=== PATIENT | female | born 1965 | race Caucasian/White ===

== ENCOUNTER 2016-11-04 13:49 | Emergency (ER) | payer OTHER ==
[~2016-11-04] VITALS: Ht 172.7 cm; Wt 73.7 kg
[2016-11-04 13:55] VITALS: TEMP 36.6; Ht 172.7 cm; Wt 73.7 kg
[2016-11-04] MEDS ORDERED: ONDANSETRON INJ 2 MG/ML 2 ML VIAL IV STA (14:12)
[2016-11-04] MEDS ORDERED: MoRPHine SULFATE 10 MG/ML CARP/VIAL IV STA (14:12)
[2016-11-04] MEDS ORDERED: SODIUM CHLORIDE 0.9% 1000ML 1,000 ML IV STA (14:12)
[2016-11-04 14:19] LABS: BASO % 0.5 %; BASO ABS # 0.04 K/uL (0-0.2); COMPLETE YES; EOS % 1.5 %; IG% 0.2 %; LYMPH % 40.1 %; LYMPH ABS # 3.38 K/uL (1.2-3.4); MEAN CELL VOLUME 86.4 fL (80-100); MEAN CORPUSCULAR HEMOGLOBIN 30.5 pg (25-34); MEAN CORPUSCULAR HGB CONC 35.2 g/dl (32-36); MEAN PLATELET VOLUME 10.6 fL (7.4-10.4); MONO % 4.9 %; NEUT % 52.8 %; PLATELET COUNT 236 K/uL (130-400); RED BLOOD COUNT 4.86 M/uL (4.2-5.4); WHITE BLOOD COUNT 8.43 K/uL (4.8-10.8)
[2016-11-04 14:31] LABS: ALT/SGPT 17 U/L (12-78); BLOOD UREA NITROGEN 12 mg/dl (7-18); BUN/CREATININE RATIO 13.8 (10-20); CALCIUM 9.2 mg/dl (8.5-10.1); CARBON DIOXIDE 30 mmol/L (21-32); CHLORIDE 108 mmol/L (98-107); CREATININE 0.87 mg/dl (0.60-1.20); GLUCOSE 88 mg/dl (70-99); POTASSIUM 3.8 mmol/L (3.5-5.1); SODIUM 143 mmol/L (136-145)
[2016-11-04 14:36] LABS: ALB/GLOB RATIO 1.2 (0.9-2); ALKALINE PHOSPHATASE 64 U/L (45-117); AST/SGOT 13 U/L (15-37)
[2016-11-04 14:46] LABS: URINE APPEARANCE CLEAR (CLEAR); URINE BILIRUBIN NEG (NEG); URINE COLOR YELLOW; URINE EPITHELIAL CELL AUTO >30 /lpf (0-5); URINE NITRITE NEG (NEG); UROBILINOGEN NEG (NEG); ZZUR CULT IF INDIC CLEAN CATCH NO
[2016-11-04 14:48] LABS: MANUAL MICROSCOPIC REQUIRED? NO; REVIEW REQ? NO
--- NOTE | 2016-11-04 15:21 | DIAGNOSTIC IMAGING REPORT ---
ABDOMINAL ULTRASOUND, RIGHT UPPER QUADRANT HISTORY: Right upper quadrant pain and nausea. COMPARISON: None. FINDINGS: Liver is sonographically normal. There is no biliary ductal dilatation. No gallstones are identified. A few small echogenic nonmobile structures enhancement to the gallbladder wall suggests small polyps which measure up to 4 mm. There is no gallbladder wall thickening. The pancreatic body is normal. The head and tail are partially obscured. There is no right hydronephrosis. IMPRESSION: 1. No gallstones or biliary ductal dilatation. 2. Several suspected small gallbladder polyps measuring up to 4 mm. 3. Partially obscured pancreas. Electronically signed by: Ruben Winter M.D. 11/04/2016 3:20 PM Dictated Date/Time: 11/04/2016 3:19 PM
[2016-11-04] MEDS ORDERED: OPTIRAY 320 IV PRN (15:45)
--- NOTE | 2016-11-04 16:18 | DIAGNOSTIC IMAGING REPORT ---
CT OF THE ABDOMEN AND PELVIS WITH CONTRAST CLINICAL HISTORY: Right upper quadrant/epigastric pain. Nausea. COMPARISON STUDY: Right upper quadrant ultrasound November 04, 2016. TECHNIQUE: Following IV administration of 114 mL of Optiray-320, axial images of the abdomen and pelvis were obtained from the lung bases to the proximal femurs. Images were reviewed in the axial, sagittal, and coronal planes. IV contrast was administered without complication. CT DOSE: 337.83 mGy.cm FINDINGS: No pneumatosis, free air or portal venous gas is present. The liver, spleen, adrenal glands, kidneys and pancreas are normal with the exception of a possible tiny fat-containing lesion arising from the upper pole of the right kidney. This is benign. There is no hydronephrosis. There is no evidence for a bowel obstruction. The appendix is normal. There is no ascites. Pelvic calcifications likely reflect phleboliths. No lymphadenopathy is present. No suspicious skeletal lesions are identified. Mild loss of height of the superior endplate of L5 is chronic. IMPRESSION: No acute process within the abdomen or pelvis. Normal appendix. Electronically signed by: Ruben Winter M.D. 11/04/2016 4:16 PM Dictated Date/Time: 11/04/2016 4:08 PM
[2016-11-04] MEDS ORDERED: HYDR-5688 PO (16:41)
[2016-11-04] MEDS ORDERED: ONDA4TAB10 SL (16:41)
--- NOTE | 2016-11-04 16:44 | EMERGENCY ROOM VISIT NOTE ---
History First contact with patient: 14:04 Chief Complaint: ABDOMINAL PAIN Stated Complaint: ABD. PAIN Nursing Triage Summary: Patient presents from [facility] with a c/c of right sided abdominal pain X 2 weeks, particularly more severe after eating. Patient does have nausea, negative vomiting, occassional diarrhea. History of Present Illness The patient is a 51 year old female who presents to the Emergency Room with complaints of right upper quadrant and epigastric abdominal pain for the past 2 weeks. The patient states that she has had progressively worsening upper abdominal pain for the past 2 weeks. She states the pain seems to worsen after eating. She reports associated nausea and a feeling of fullness after eating. The patient denies any vomiting. She rates her current discomfort 8/10. She has not been taking any medication for pain. She was seen at her primary care provider's office and they sent her here for further evaluation. The patient does report she had some blood in her stools a few months ago, but denies any recent changes in bowel movements or blood in her stools. She denies any fevers /chills, chest pain or urinary symptoms. She reports a history of hysterectomy but no other abdominal surgeries. Review of Systems A complete 10-point Review of Systems was discussed with the patient, with pertinent positives and negatives listed in the History of Present Illness. All remaining Review of Systems questions can be considered negative unless otherwise specified. Social History Smoking Status: Current Every Day Smoker Marital Status: Housing Status: lives with family Current/Historical Medications Scheduled Ondasetron Odt (Zofran Odt), 4 MG SL Q6H Scheduled PRN Hydrocodone/Acetaminophen 5MG/325MG ([place] 5MG/325MG), 1 TABLET PO Q4H PRN for Pain Allergies Coded Allergies: No Known Allergies (Unverified , none, 11/04/16) Physical Exam Vital Signs Date Time Temp Pulse Resp B/P Pulse Ox O2 Delivery O2 Flow Rate FiO2 11/04/16 16:53 70 18 113/79 95 11/04/16 15:21 61 16 118/69 95 Room Air 11/04/16 13:55 36.6 78 18 119/80 97 Room Air Physical Exam VITALS: Vitals are noted on the nurse's note and reviewed by myself. Vital signs stable. GENERAL: This is a 51-year-old female, in no acute distress, nondiaphoretic, well-developed well-nourished. SKIN: Capillary reflex less than 2 seconds. HEENT: Normocephalic. PERRLA. EOMI. Nares patent. Mucous membranes moist. Neck is supple without nuchal rigidity. HEART: Regular rate and rhythm without murmurs gallops or rubs. LUNGS: Clear to auscultation bilaterally without wheezes, rales or rhonchi. No retractions or accessory muscle use. ABDOMEN: Positive bowel sounds x 4. Soft, moderate tenderness over the epigastric region and right upper quadrant. Negative Mckeon sign. No guarding or rebound tenderness. NEURO: Patient was alert and oriented to person place and time. Medical Decision & Procedures ER Provider Diagnostic Interpretation: ABDOMINAL ULTRASOUND, RIGHT UPPER QUADRANT FINDINGS: Liver is sonographically normal. There is no biliary ductal dilatation. No gallstones are identified. A few small echogenic nonmobile structures enhancement to the gallbladder wall suggests small polyps which measure up to 4 mm. There is no gallbladder wall thickening. The pancreatic body is normal. The head and tail are partially obscured. There is no right hydronephrosis. IMPRESSION: 1. No gallstones or biliary ductal dilatation. 2. Several suspected small gallbladder polyps measuring up to 4 mm. 3. Partially obscured pancreas. CT OF THE ABDOMEN AND PELVIS WITH CONTRAST FINDINGS: No pneumatosis, free air or portal venous gas is present. The liver, spleen, adrenal glands, kidneys and pancreas are normal with the exception of a possible tiny fat-containing lesion arising from the upper pole of the right kidney. This is benign. There is no hydronephrosis. There is no evidence for a bowel obstruction. The appendix is normal. There is no ascites. Pelvic calcifications likely reflect phleboliths. No lymphadenopathy is present. No suspicious skeletal lesions are identified. Mild loss of height of the superior endplate of L5 is chronic. IMPRESSION: No acute process within the abdomen or pelvis. Normal appendix. Laboratory Results 11/04/16 14:05 Red Blood Count 4.86, Mean Corpuscular Volume 86.4, Mean Corpuscular Hemoglobin 30.5, Mean Corpuscular Hemoglobin Concent 35.2, Mean Platelet Volume 10.6, Neutrophils (%) (Auto) 52.8, Lymphocytes (%) (Auto) 40.1, Monocytes (%) (Auto) 4.9, Eosinophils (%) (Auto) 1.5, Basophils (%) (Auto) 0.5, Neutrophils # (Auto) 4.45, Lymphocytes # (Auto) 3.38, Monocytes # (Auto) 0.41, Eosinophils # (Auto) 0.13, Basophils # (Auto) 0.04 11/04/16 14:05 Test 11/04/16 00:00 11/04/16 14:05 Urine Color YELLOW Urine Appearance CLEAR (CLEAR) Urine pH 7.0 (4.5-7.5) Urine Specific [place] 1.010 (1.000-1.030) Urine Protein NEG (NEG) Urine Glucose (UA) NEG (NEG) Urine Ketones NEG (NEG) Urine Occult Blood 1+ (NEG) Urine Nitrite NEG (NEG) Urine Bilirubin NEG (NEG) Urine Urobilinogen NEG (NEG) Urine Leukocyte Esterase TRACE (NEG) Urine WBC (Auto) 1-5 /hpf (0-5) Urine RBC (Auto) 5-10 /hpf (0-4) Urine Hyaline Casts (Auto) 1-5 /lpf (0-5) Urine Epithelial Cells (Auto) >30 /lpf (0-5) Urine Bacteria (Auto) NEG (NEG) White Blood Count 8.43 K/uL (4.8-10.8) Red Blood Count 4.86 M/uL (4.2-5.4) Hemoglobin 14.8 g/dL (12.0-16.0) Hematocrit 42.0 % (37-47) Mean Corpuscular Volume 86.4 fL (80-100) Mean Corpuscular Hemoglobin 30.5 pg (25-34) Mean Corpuscular Hemoglobin Concent 35.2 g/dl (32-36) Platelet Count 236 K/uL (130-400) Mean Platelet Volume 10.6 fL (7.4-10.4) Neutrophils (%) (Auto) 52.8 % Lymphocytes (%) (Auto) 40.1 % Monocytes (%) (Auto) 4.9 % Eosinophils (%) (Auto) 1.5 % Basophils (%) (Auto) 0.5 % Neutrophils # (Auto) 4.45 K/uL (1.4-6.5) Lymphocytes # (Auto) 3.38 K/uL (1.2-3.4) Monocytes # (Auto) 0.41 K/uL (0.11-0.59) Eosinophils # (Auto) 0.13 K/uL (0-0.5) Basophils # (Auto) 0.04 K/uL (0-0.2) RDW Standard Deviation 42.3 fL (36.4-46.3) RDW Coefficient of Variation 13.3 % (11.5-14.5) Immature Granulocyte % (Auto) 0.2 % Immature Granulocyte # (Auto) 0.02 K/uL (0.00-0.02) Anion Gap 5.0 mmol/L (3-11) Est Creatinine Clear Calc Drug Dose 78.9 ml/min Estimated GFR () 90.7 Estimated GFR (Non- 78.2 BUN/Creatinine Ratio 13.8 (10-20) Calcium Level 9.2 mg/dl (8.5-10.1) Total Bilirubin 0.8 mg/dl (0.2-1) Aspartate Amino Transf (AST/SGOT) 13 U/L (15-37) Alanine Aminotransferase (ALT/SGPT) 17 U/L (12-78) Alkaline Phosphatase 64 U/L (45-117) Troponin I < 0.015 ng/ml (0-0.045) Total Protein 7.6 gm/dl (6.4-8.2) Albumin 4.2 gm/dl (3.4-5.0) Globulin 3.4 gm/dl (2.5-4.0) Albumin/Globulin Ratio 1.2 (0.9-2) Lipase 124 U/L (73-393) Medications Administered Medications (Trade) Dose Ordered Sig/Sil Route Start Time Stop Time Status Last Admin Dose Admin Sodium Chloride (Nss 1000ml) 1,000 ml @ 999 mls/hr Q1H1M STAT IV 11/04/16 14:12 11/04/16 15:12 DC 11/04/16 14:31 999 MLS/HR Morphine Sulfate (MoRPHine SULFATE INJ) 6 mg NOW STAT IV 11/04/16 14:12 11/04/16 14:15 DC 11/04/16 14:31 6 MG Ondansetron HCl (Zofran Inj) 4 mg NOW STAT IV 11/04/16 14:12 11/04/16 14:15 DC 11/04/16 14:30 4 MG Medical Decision Differential diagnosis includes cholecystitis, pancreatitis, hepatitis, gastroenteritis, colitis, bowel obstruction, malignancy, appendicitis, among others. The patient was evaluated as above. Labs were drawn and IV access was obtained. Imaging studies were performed and read by radiology as above. The patient was medicated with 1 L normal saline solution, 6 mg morphine IV, and 4 mg Zofran IV. The patient was reassessed multiple times during their stay in the emergency department and remained in stable condition. The patient is a 51-year-old female who presents today complaining of epigastric and right upper quadrant pain. Labs revealed no leukocytosis, anemia or concerning electrolyte abnormalities. Kidney liver functions were within normal limits. Urinalysis was not suggestive of infection. Right upper quadrant ultrasound was initially performed and showed no acute findings within the right upper quadrant. Note was made of gallbladder polyps which I do not feel her causing the patient discomfort. At this time, a CT scan was performed due to the patient's discomfort. This was read by radiology and also showed no acute findings within the abdomen. Patient's pain was controlled with IV pain medication and antiemetics. She will be discharged home with a prescription for Graymont and Zofran. She was instructed to start Prilosec and follow-up with her primary care provider within 48 hours. Based on the patient's presentation, lab results, and imaging studies, I feel the patient is stable for outpatient treatment. The patient's case was reviewed with Dr. Smith, ED attending physician, who agreed with my assessment and treatment plan. Discharge instructions were reviewed with the patient. The patient verbalized understanding of my assessment and treatment plan and was discharged home in good condition. [place] Drug Monitoring Program Search Results: patient reviewed within database, no issues identified Impression Primary Impression: RUQ abdominal pain Departure Information Dispostion Home / Self-Care Condition GOOD Prescriptions Ondasetron Odt (ZOFRAN ODT) 4 Mg Tab 4 MG SL Q6H for Nausea, #15 TAB Prov: Lin Singleton PA-C 11/04/16 Hydrocodone/Acetaminophen 5MG/325MG ([place] 5MG/325MG) Tab 1 TABLET PO Q4H Y for Pain, #15 TAB For Initial Treatment Prov: Lin Singleton PA-C 11/04/16 Referrals Amaya Jamison M.D. (PCP) Patient Instructions My [facility] Additional Instructions You have been treated in the Emergency Department your Abdominal Pain. Laboratory results and imaging studies have ruled out any emergent causes for your abdominal pain which would warrant admission or surgery. You have been prescribed Graymont to be used for pain control. This is a narcotic medication. You cannot drive or consume alcohol while on this medicine. This medicine should only be used for pain that cannot be controlled with over-the- counter pain medicines. You have been prescribed Zofran to be used for any nausea or vomiting. Take as prescribed. Prilosec, 40 mg daily until follow-up with your primary care provider. Drink plenty of water and stay well hydrated. As with any trip to the Emergency Department, you should follow-up with your Primary Care Provider from today's visit. Call and schedule a follow-up within 2-3 days. Return to the emergency department if your symptoms persist despite treatment plan outlined above or if the following symptoms occur: increased abdominal pain , fevers, chills, worsening nausea/vomiting, blood in your stool or urine.
[2016-11-04 16:53] VITALS: BP 113/79; PULSE 70; O2SAT 95
== END 2016-11-04 16:54 | disposition home or self-care (01) ==
LOC: C.EDB 13:50 → C.EDC 16:54
DX: R10.11 Right upper quadrant pain (principal); R10.13 Epigastric pain; R11.0 Nausea; F17.200 Nicotine dependence, unspecified, uncomplicated; Z90.710 Acquired absence of both cervix and uterus

== ENCOUNTER 2017-09-22 14:34 | Emergency (ER) | payer OTHER ==
[~2017-09-22] VITALS: Ht 172.7 cm; Wt 76.5 kg
[2017-09-22 14:49] VITALS: TEMP 36.8; Ht 172.7 cm; Wt 76.5 kg
[2017-09-22] MEDS ORDERED: OXYCODONE/ACETAMINOPHEN 5-325 TAB PO ONE (15:15)
--- NOTE | 2017-09-22 15:25 | EMERGENCY ROOM VISIT NOTE ---
History Report prepared by Kyle: Fabi Holbrook Under the Supervision of: Dr. Jabier Wall M.D. 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 She describes the pain as a burning and feels numbness. 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 The patient states she was at her house this morning and was feeling lightheaded and dizzy so she went to sit down in a chair. However, the chair had wheels on it and it rolled out from under her and she tried to catch herself on her wrist but feel on her bottom. She denies any LOC, chest pain, nausea, cough, vomiting , and diarrhea. 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 A total of ten systems were reviewed and were otherwise negative. Past Medical & Surgical Surgical Problems: (1) Status post complete hysterectomy Family History Cancer FHx: diabetes mellitus Gallbladder disease Heart disease Lung disease Social History Smoking Status: Current Every Day Smoker Smokeless Tobacco Use: Yes Marital Status: Housing Status: lives with family Current/Historical Medications Scheduled Naproxen (Aleve), 440 MG PO PRN UD Scheduled PRN Acetaminophen (Tylenol), 1,000 MG PO Q6 PRN for Pain Allergies Coded Allergies: No Known Allergies (Unverified , none, 11/04/16) Physical Exam Vital Signs Date Time Temp Pulse Resp B/P (MAP) Pulse Ox O2 Delivery O2 Flow Rate FiO2 09/22/17 17:45 73 18 129/76 98 09/22/17 16:54 71 16 131/84 97 Room Air 09/22/17 14:49 36.8 83 20 124/84 97 Room Air Physical Exam GENERAL: Awake, alert, uncomfortable-appearing, in no distress HENT: Normocephalic, atraumatic. Oropharynx unremarkable. EYES: Normal conjunctiva. Sclera non-icteric. NECK: Supple. No nuchal rigidity. FROM. No JVD. RESPIRATORY: Clear to auscultation. CARDIAC: Regular rate, normal rhythm. Extremities warm and well perfused. Pulses equal. ABDOMEN: Soft, non-distended. No tenderness to palpation. No rebound or guarding. No masses. RECTAL: Deferred. MUSCULOSKELETAL: Chest examination reveals no tenderness. Tenderness throughout the C and upper T spine, no step offs, tenderness to the right paraspinal muscles of the spine extending to the trapezius, tenderness to the right upper shoulder, tenderness to the right radial aspect of the wrist with snuff box tenderness LOWER EXTREMITIES: Calves are equal size bilaterally and non-tender. No edema. No discoloration. NEURO: Normal sensorium. No sensory or motor deficits noted. SKIN: No rash or jaundice noted. Medical Decision & Procedures ER Provider Diagnostic Interpretation: Radiology results as stated below per my review and radiologist interpretation: R WRIST MIN 3 VIEWS ROUTINE CLINICAL HISTORY: Pain following fall. COMPARISON: None FINDINGS: Alignment of the right wrist is anatomic. No acute fracture is identified. There is mild arthritis within several articulations of the right wrist. IMPRESSION: No acute fracture or dislocation of the right wrist. Electronically signed by: Ruben Winter M.D. 09/22/2017 3:51 PM Dictated Date/Time: 09/22/2017 3:50 PM R SHOULDER MIN 2 VIEWS ROUTINE CLINICAL HISTORY: Pain following fall. COMPARISON: None FINDINGS: Alignment of the right shoulder is anatomic. There is no acute fracture. There is mild osteoarthritis of the right acromioclavicular joint. IMPRESSION: No acute fracture or dislocation of the right shoulder. Electronically signed by: Ruben Winter M.D. 09/22/2017 3:42 PM Dictated Date/Time: 09/22/2017 3:41 PM R HAND MIN 3 VIEWS ROUTINE CLINICAL HISTORY: Right hand pain following fall. COMPARISON: None FINDINGS: Alignment of the right hand is anatomic. There is no acute fracture. There is mild osteoarthritis within several articulations of the right hand. IMPRESSION: No acute fracture or dislocation within the right hand. Electronically signed by: Ruben Winter M.D. 09/22/2017 3:52 PM Dictated Date/Time: 09/22/2017 3:[address] OF THE CERVICAL SPINE WITHOUT CONTRAST CLINICAL HISTORY: Neck pain following fall. COMPARISON STUDY: No previous studies for comparison. TECHNIQUE: Helical axial images of the cervical spine were obtained without IV contrast. Sagittal and coronal reconstructions were viewed. A dose lowering technique was utilized adhering to the principles of ALARA. FINDINGS: There is reversal of the normal cervical lordosis. Craniocervical junction is intact. There is no acute cervical spine fracture. Central canal is suboptimally assessed by CT. There is mild to moderate multilevel degenerative disc disease. There is mild multilevel facet arthrosis. Mild bullous emphysema is noted within visualized portions of the lung apices. IMPRESSION: No acute cervical spine fracture or subluxation. Electronically signed by: Ruben Winter M.D. 09/22/2017 4:27 PM Dictated Date/Time: 09/22/2017 4:[address] OF THE CHEST WITHOUT IV CONTRAST CLINICAL HISTORY: Right chest wall pain following fall. COMPARISON STUDY: No previous studies for comparison. TECHNIQUE: Axial images of the chest were obtained without IV contrast. Images were reviewed in the axial, sagittal, and coronal planes. IV contrast was not administered for this examination. A dose lowering technique was utilized adhering to the principles of ALARA. FINDINGS: No mediastinal hematoma is identified. Thoracic aorta is suboptimally assessed on this unenhanced exam but there is no evidence of traumatic injury to the thoracic aorta on the study. The size of the heart is normal. There is no pericardial effusion. No enlarged thoracic lymph nodes are present. There is mild paraseptal emphysema within the lung apices. There is no pneumothorax or pleural effusion. Groundglass opacity suggest atelectasis. No acute rib or thoracic spine fracture is present. Mild loss of height of the superior endplate of T9 is chronic. A cyst within the upper pole the right kidney is noted. IMPRESSION: 1. No acute traumatic findings within the chest. 2. Mild paraseptal emphysema. Electronically signed by: Ruben Winter M.D. 09/22/2017 4:34 PM Dictated Date/Time: 09/22/2017 4:28 PM THORACIC SPINE WITHOUT CLINICAL HISTORY: Pain following fall. COMPARISON STUDY: No previous studies for comparison. FINDINGS: Alignment of the thoracic spine is anatomic. Mild loss of height of the superior endplate of T9 with an associated Schmorl's node is unchanged since abdominal CT of November 04, 2016. This is chronic. There is no acute thoracic spine fracture. Disc spaces are preserved. There is mild endplate osteophytosis. The chest CT will be reported separately. IMPRESSION: 1. No acute thoracic spine fracture or subluxation. 2. Mild loss of height of the superior endplate of T9 with associated Schmorl's node which is unchanged since CT of November 04, 2016. This is chronic. Electronically signed by: Ruben Winter M.D. 09/22/2017 4:36 PM Dictated Date/Time: 09/22/2017 4:34 PM Laboratory Results Test 09/22/17 15:26 Influenza Type A Antigen Neg for Influ A (NEG) Influenza Type B Antigen Neg for Influ B (NEG) Laboratory results reviewed by me Medications Administered Medications (Trade) Dose Ordered Sig/Sil Route Start Time Stop Time Status Last Admin Dose Admin Oxycodone/ Acetaminophen (Percocet 5-325mg Tab) 1 tab NOW ONCE PO 09/22/17 15:15 09/22/17 15:16 DC 09/22/17 15:30 1 TAB ED Course 1455: The patient was evaluated in room A12. A complete history and physical exam was performed. 1645: I reevaluated the patient. Discussed results and discharge instructions: She verbalized understanding and agreement. The patient is ready for discharge. Medical Decision I reviewed the patient's past medical history, medications, and the nursing notes as described above. Differential diagnosis: Etiologies such as fracture, dislocation, intra-abdominal, pneumothorax, intrathoracic , intracranial, neurologic, as well as other traumatic pathologies were entertained. The patient is a 51-year-old woman who presents emergency department after having a mechanical fall when her recliner which is on wheels slipped out from underneath her and she planted her right hand to brace her fall subsequently having significant right wrist, shoulder, neck and back pain per hpi. Ill the patient is no acute distress, afebrile stable vital signs. She has tenderness to the radial aspect of the right wrist with positive snuffbox tenderness. Tenderness to the anterior aspect of the right shoulder with pain with passive and active range of motion. Tenderness throughout the cervical and upper T- spine with no step-offs. CT of cervical and thoracic spine and chest negative. Plan films of shoulder wrist and hand negative for fx. Given patient's increased pain in shoulder with active ROM likely RC injury. +snuff box ttp persists thus will splint and have patient f/u with ortho. Findings and plan for follow-up reviewed with patient. Patient agreeable and d/c'd per discharge instructions. Medication Reconcilliation Current Medication List: was personally reviewed by me Blood Pressure Screening Patient's blood pressure: Normal blood pressure Blood pressure disposition: Did not require urgent referral Impression Primary Impression: Right wrist sprain Additional Impressions: Rotator cuff injury Neck muscle strain Scribe Attestation The scribe's documentation has been prepared under my direction and personally reviewed by me in its entirety. I confirm that the note above accurately reflects all work, treatment, procedures, and medical decision making performed by me. Departure Information Dispostion Home / Self-Care Referrals Amaya Jamison M.D. (PCP) Eduardo Hays, DO Patient Instructions ED Sling, ED Sprain Strain Neck, ED Sprain Wrist, [facility], Rotator Cuff Injury Additional Instructions Please follow up with orthopedics, Dr. Hays, in the next week for re- evaluation of your wrist and shoulder and possible repeat xray of your wrist. You likely have a rotator cuff injury and a wrist sprain although scaphoid fracture is still possible given your tenderness at the base of your thumb. Otherwise, your exam, Xrays, and CT scan of your neck, chest, cervical and thoracic spine did not show signs of an emergent condition at this time. Continue your Acetaminophen or Aleve for pain as needed. Splint and sling as directed. Drink plenty of fluids to ensure hydration. Return to the emergency department for worsening symptoms as described in the accompanying instructions. Problem Qualifiers
--- NOTE | 2017-09-22 15:44 | DIAGNOSTIC IMAGING REPORT ---
R SHOULDER MIN 2 VIEWS ROUTINE CLINICAL HISTORY: Pain following fall. COMPARISON: None FINDINGS: Alignment of the right shoulder is anatomic. There is no acute fracture. There is mild osteoarthritis of the right acromioclavicular joint. IMPRESSION: No acute fracture or dislocation of the right shoulder. Electronically signed by: Ruben Winter M.D. 09/22/2017 3:42 PM Dictated Date/Time: 09/22/2017 3:41 PM
[2017-09-22] MEDS ORDERED: ACET-1256 PO (15:49)
[2017-09-22] MEDS ORDERED: NAPR1TAB9 PO (15:49)
--- NOTE | 2017-09-22 15:52 | DIAGNOSTIC IMAGING REPORT ---
R WRIST MIN 3 VIEWS ROUTINE CLINICAL HISTORY: Pain following fall. COMPARISON: None FINDINGS: Alignment of the right wrist is anatomic. No acute fracture is identified. There is mild arthritis within several articulations of the right wrist. IMPRESSION: No acute fracture or dislocation of the right wrist. Electronically signed by: Ruben Winter M.D. 09/22/2017 3:51 PM Dictated Date/Time: 09/22/2017 3:50 PM
--- NOTE | 2017-09-22 15:53 | DIAGNOSTIC IMAGING REPORT ---
R HAND MIN 3 VIEWS ROUTINE CLINICAL HISTORY: Right hand pain following fall. COMPARISON: None FINDINGS: Alignment of the right hand is anatomic. There is no acute fracture. There is mild osteoarthritis within several articulations of the right hand. IMPRESSION: No acute fracture or dislocation within the right hand. Electronically signed by: Ruben Winter M.D. 09/22/2017 3:52 PM Dictated Date/Time: 09/22/2017 3:51 PM
[2017-09-22 16:28] LABS: INFLUENZA B ANTIGEN Neg for Influ B (NEG)
--- NOTE | 2017-09-22 16:28 | DIAGNOSTIC IMAGING REPORT ---
CT OF THE CERVICAL SPINE WITHOUT CONTRAST CLINICAL HISTORY: Neck pain following fall. COMPARISON STUDY: No previous studies for comparison. TECHNIQUE: Helical axial images of the cervical spine were obtained without IV contrast. Sagittal and coronal reconstructions were viewed. A dose lowering technique was utilized adhering to the principles of ALARA. FINDINGS: There is reversal of the normal cervical lordosis. Craniocervical junction is intact. There is no acute cervical spine fracture. Central canal is suboptimally assessed by CT. There is mild to moderate multilevel degenerative disc disease. There is mild multilevel facet arthrosis. Mild bullous emphysema is noted within visualized portions of the lung apices. IMPRESSION: No acute cervical spine fracture or subluxation. Electronically signed by: Ruben Winter M.D. 09/22/2017 4:27 PM Dictated Date/Time: 09/22/2017 4:23 PM
--- NOTE | 2017-09-22 16:36 | DIAGNOSTIC IMAGING REPORT ---
CT OF THE CHEST WITHOUT IV CONTRAST CLINICAL HISTORY: Right chest wall pain following fall. COMPARISON STUDY: No previous studies for comparison. TECHNIQUE: Axial images of the chest were obtained without IV contrast. Images were reviewed in the axial, sagittal, and coronal planes. IV contrast was not administered for this examination. A dose lowering technique was utilized adhering to the principles of ALARA. FINDINGS: No mediastinal hematoma is identified. Thoracic aorta is suboptimally assessed on this unenhanced exam but there is no evidence of traumatic injury to the thoracic aorta on the study. The size of the heart is normal. There is no pericardial effusion. No enlarged thoracic lymph nodes are present. There is mild paraseptal emphysema within the lung apices. There is no pneumothorax or pleural effusion. Groundglass opacity suggest atelectasis. No acute rib or thoracic spine fracture is present. Mild loss of height of the superior endplate of T9 is chronic. A cyst within the upper pole the right kidney is noted. IMPRESSION: 1. No acute traumatic findings within the chest. 2. Mild paraseptal emphysema. Electronically signed by: Ruben Winter M.D. 09/22/2017 4:34 PM Dictated Date/Time: 09/22/2017 4:28 PM
--- NOTE | 2017-09-22 16:37 | DIAGNOSTIC IMAGING REPORT ---
THORACIC SPINE WITHOUT CLINICAL HISTORY: Pain following fall. COMPARISON STUDY: No previous studies for comparison. FINDINGS: Alignment of the thoracic spine is anatomic. Mild loss of height of the superior endplate of T9 with an associated Schmorl's node is unchanged since abdominal CT of November 04, 2016. This is chronic. There is no acute thoracic spine fracture. Disc spaces are preserved. There is mild endplate osteophytosis. The chest CT will be reported separately. IMPRESSION: 1. No acute thoracic spine fracture or subluxation. 2. Mild loss of height of the superior endplate of T9 with associated Schmorl's node which is unchanged since CT of November 04, 2016. This is chronic. Electronically signed by: Ruben Winter M.D. 09/22/2017 4:36 PM Dictated Date/Time: 09/22/2017 4:34 PM
[2017-09-22 17:45] VITALS: BP 129/76; PULSE 73; O2SAT 98
== END 2017-09-22 17:43 | disposition home or self-care (01) ==
LOC: C.EDB 14:37 → C.EDA 17:43
DX: S63.501A Unspecified sprain of right wrist, initial encounter (principal); S46.001A Unspecified injury of muscle(s) and tendon(s) of the rotator cuff of right shoulder, initial encounter; S16.1XXA Strain of muscle, fascia and tendon at neck level, initial encounter; W18.39XA Other fall on same level, initial encounter; Y93.89 Activity, other specified; Y92.009 Unspecified place in unspecified non-institutional (private) residence as the place of occurrence of the external cause; F17.200 Nicotine dependence, unspecified, uncomplicated; Z80.9 Family history of malignant neoplasm, unspecified; Z83.3 Family history of diabetes mellitus; Z83.79 Family history of other diseases of the digestive system; Z82.49 Family history of ischemic heart disease and other diseases of the circulatory system

== ENCOUNTER 2019-01-09 06:33 | Observation (INO) ==
--- NOTE | 2018-12-12 09:22 | Anesthesiology Consultation ---
Date of Service December 12, 2018 Assessment & Plan (1) Encounter for pre-operative examination: Chart Review Chart Review: Acceptable Risk for Surgery and Patient NOT seen in Pre Admission Testing Consults Requested none History Surgery Operation Date: 01/09/19 10:05 Proposed Procedures p C5-C6, C6-C7 Anterior Cervical Discectomy and Fusion with Iliac Crest Bone Graft - Eduardo Hays DO Height/Weight Height: 5 ft 7 in Weight: 76.204 kg Allergies Allergy/AdvReac Type Severity Reaction Status Date / Time No Known Allergies Allergy none Verified 12/11/18 13:59 Medications Home Medications Medication Instructions Recorded Confirmed Last Taken No Known Home Medications 12/11/18 12/11/18 Unknown Past Medical History Medical History Degenerative disc disease Past Surgical History Surgical History History of arthroscopy KNEE History of hysterectomy Social History Smoking Status: Former smoker tobacco type: cigarettes Smoking cigarettes per day: QUIT Sep Do You Dip or Chew Tobacco: No Hx Alcohol Use: No Alcohol Intake Frequency Comment: 0 Hx Substance Use: No substance use type: does not use Testing Electrocardiogram Date: 12/04/18 Findings: + SB @ (59) Sinus bradycardia Otherwise normal ECG When compared with ECG of 04-NOV-2016 14:20, No significant change was found Confirmed by Joaquin Rojas ([id number]) on 12/04/2018 4:16:05 PM Chest X-Ray Date: 12/04/18 CLINICAL HISTORY: Preoperative examination. FINDINGS: PA and lateral chest radiographs are correlated with chest CT dated 09/22/2017. The cardiomediastinal silhouette is unremarkable. Emphysema and chronic interstitial thickening are similar to previous. No airspace consolidation or pleural effusion is identified. There is no pneumothorax. The bony thorax appears intact. IMPRESSION: Emphysematous change with no active disease in the chest. Laboratory Results Laboratory Tests 12/04/18 12/04/18 12/04/18 10:38 10:38 10:38 WBC 5.40 Hgb 13.6 Hct 39.9 Plt Count 240 PT 10.3 INR 1.0 APTT 25.7 Sodium 144 Potassium 3.9 Chloride 112 H Carbon Dioxide 28 BUN 22 H Creatinine 0.72 Glucose 72
--- NOTE | 2019-01-08 11:04 | History and Physical Report ---
DATE OF ADMISSION: 01/09/2019 CHIEF COMPLAINT: Neck and upper extremity difficulty, paresthesias, numbness and tingling. She is set up for an anterior cervical discectomy and fusion C5-C7 with iliac crest bone graft. PAST MEDICAL HISTORY: Negative for heart disease, diabetes, cancer, hypertension. PAST SURGICAL HISTORY: Hysterectomy, arthroscopic knee surgery. ALLERGIES: Negative. FAMILY HISTORY: Heart disease, diabetes and stage IV cancer. SOCIAL HISTORY: She is . No alcohol, tobacco. Two children. Active lifestyle. REVIEW OF SYSTEMS: CONSTITUTIONAL: Positive for headaches. EAR, NOSE AND THROAT: Negative. RESPIRATORY: Denies chest pain, palpitations. No asthma, wheezing. GASTROINTESTINAL: No nausea, vomiting. GENITOURINARY: No genitourinary issues. MUSCULOSKELETAL: She has numbness and tingling and neck and arm pain. MEDICATIONS: Aleve. PHYSICAL EXAMINATION: GENERAL: She is alert, oriented, 53 years of age. VITAL SIGNS: Blood pressure 130/80, pulse 80, respiration 16. HEENT: Pupils react to light and accommodation. Facial and cranial nerves normal. CARDIAC: Normal S1, S2. No S3. LUNGS: Clear. ABDOMEN: Soft and nontender. Bowel sounds present. SKIN INTEGUMENTARY: Normal. No adenopathy. MUSCULOSKELETAL: She has a positive Spurling maneuver. She has a positive Lhermitte sign. She has loss of strength, numbness and tingling to index, long and thumb bilateral hands. Reflex examination normal. Normal upper motor neuron issues. ASSESSMENT: Two level cervical spinal neural pathology. PLAN: Includes ACDF of the cervical spine C5-C7 with iliac crest bone graft.
[~2019-01-09 06:33] MED LIST: CEFAZOLIN 2000MG 2,000 MG/15 ML SYR IV SCH; LR 15ML/HR IV SCH
[2019-01-09] MEDS ORDERED: MIDAZOLAM HCL 1 MG/ML 2ML VIAL ONE (07:38)
[2019-01-09] MEDS ORDERED: PROPOFOL IV EMULSION 10 MG/ML 20 ML VIAL IV ONE (07:38)
[2019-01-09] MEDS ORDERED: PHENYLEPHRINE HCL 10 MG/ML VIAL ONE (07:38)
[2019-01-09] MEDS ORDERED: NEOSTIGMINE METHYLSULFATE 5 MG/5 ML SYR ONE (07:38)
[2019-01-09] MEDS ORDERED: DEXAMETHASONE SOD INJ 4 MG/ML VIAL ONE (07:38)
[2019-01-09] MEDS ORDERED: GLYCOPYRROLATE 0.2 MG/ML VIAL ONE (07:38)
[2019-01-09] MEDS ORDERED: SUCCINYLCHOLINE CHLORIDE 20 MG/ML 10 ML VIAL ONE (07:38)
[2019-01-09] MEDS ORDERED: ONDANSETRON INJ 2 MG/ML 2 ML VIAL ONE (07:38)
[2019-01-09] MEDS ORDERED: ePHEDrine sulfate 50 MG/ML AMP ONE (07:38)
[2019-01-09] MEDS ORDERED: LIDOCAINE HCL 2% 2 ML VIAL/AMP(20MG/ML) INFIL ONE (07:38)
[2019-01-09] MEDS ORDERED: fentaNYL citrate 100 MCG/2 ML VIAL ONE (07:39)
[2019-01-09] MEDS ORDERED: GELATIN SPONGE SZ 100 ONE (07:47)
[2019-01-09] MEDS ORDERED: THROMBIN FOR SOLN 20000 UNIT KIT ONE (07:47)
[2019-01-09] MEDS ORDERED: BUPIVACAINE/EPINEPHRINE 0.5% MPF 1:200,000 30 ML VIAL ONE (07:47)
[2019-01-09] MEDS ORDERED: BACITRACIN INJ 50,000 UNIT VIAL ONE (07:48)
--- NOTE | 2019-01-09 07:52 | History & Physical Bridge Note ---
Date of Service January 09, 2019 History & Physical Bridge Note I have examined the patient, reviewed the History & Physical and in the interval since the performance of the History & Physical I have noted the following changes of clinical significance: no changes noted
[2019-01-09] MEDS ORDERED: HYDROmorphone INJ 2 MG/ML SYR/VIAL ONE (08:57)
--- NOTE | 2019-01-09 10:22 | Fluoroscopy Report ---
FL spine 1V any level CLINICAL HISTORY: C5-C7 ACDF WITH BONE GRAFT COMPARISON STUDY: Cervical spine MRI November 27, 2018. FLUOROSCOPY TIME: 6.4 seconds. FLUOROSCOPIC IMAGES: 1 FINDINGS: Single fluoroscopic image demonstrates C5-C7 anterior discectomy and fusion. Alignment appe ars anatomic. There are no unexpected radiopaque foreign bodies. IMPRESSION: Fluoroscopic images demonstrating a C5-C7 anterior discectomy and fusion. Electronically signed by: Ruben Winter M.D. 01/09/2019 10:21 AM
--- NOTE | 2019-01-09 10:31 | Post Operative Brief Note ---
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
[2019-01-09] MEDS ORDERED: LABETALOL HCL IV 5 MG/ML 20ML IV PRN (10:41)
[2019-01-09] MEDS ORDERED: ePHEDrine sulfate 50 MG/ML AMP IV PRN (10:41)
[2019-01-09] MEDS ORDERED: PROMETHAZINE HCL 12.5 MG in SODIUM CHLORIDE 0.9% 50 ML IV PRN (10:41)
[2019-01-09] MEDS ORDERED: HYDROmorphone INJ 1 MG/ML SYRINGE IV PRN (10:41)
[2019-01-09] MEDS ORDERED: ONDANSETRON INJ 2 MG/ML 2 ML VIAL IV PRN (10:41)
[2019-01-09] MEDS ORDERED: ATROPINE SULFATE 0.1 MG/ML 10ML SYR IV PRN (10:41)
[2019-01-09] MEDS ORDERED: ROCURONIUM BROMIDE 10 MG/ML 5 ML VIAL ONE (10:41)
[2019-01-09] MEDS ORDERED: NALOXONE HCL 0.4 MG/1 ML VIAL/CARP IV PRN ×2 (10:41→12:44)
[2019-01-09] MEDS ORDERED: FLUMAZENIL 0.1 MG/1 ML 10 ML VIAL IV PRN (10:41)
--- NOTE | 2019-01-09 11:31 | Anesthesiology Progress Note ---
Date of Service January 09, 2019 Anesthesia Post Procedure Vital Signs Vital Signs: Temp Pulse Resp BP BP Pulse Ox 01/09/19 11:20 64 13 152/97 H 99 01/09/19 11:10 36.3 C L 69 18 151/88 H 98 01/09/19 11:00 93 H 20 157/86 H 94 01/09/19 10:50 78 12 158/92 H 100 01/09/19 10:40 87 19 165/85 H 100 01/09/19 10:30 36.4 C L 97 H 17 178/95 H 93 01/09/19 07:08 36.9 C 71 18 109/76 96 Pain Intensity Right Upper Arm: Pain Intensity: 8 Transfer of Care Handoff Completed per policy Notes Mental Status: alert / awake / arousable Patient Amnestic to Procedure: Yes Nausea / Vomiting: adequately controlled Pain: adequately controlled Airway Patency, RR, SpO2: stable & adequate BP & HR: stable & adequate Hydration State: stable & adequate Anesthetic Complications: no major complications apparent
[2019-01-09] MEDS ORDERED: DEXAMETHASONE SOD PHOSPHATE 8 MG in SYRINGE 0 ML IV PRN (12:44)
[2019-01-09] MEDS ORDERED: MAGNESIUM HYDROXIDE SUSP 30 ML UDC PO PRN (12:44)
[2019-01-09] MEDS ORDERED: LORazepam 0.5 MG/1 ML VIAL IV PRN (12:44)
[2019-01-09] MEDS ORDERED: RACEPINEPHRINE 2.25% NEBU SOLN 0.5 ML VIAL INH PRN (12:51)
[2019-01-09] MEDS: HYDROmorphone INJ 0.5 MG/0.5 ML SYR IV PRN ×3 (13:19→23:54)
[2019-01-09] MEDS: SODIUM CHLORIDE 0.9% 1000ML 1,000 ML IV SCH (13:21)
[2019-01-09] MEDS: CEFAZOLIN 2000MG 2,000 MG/15 ML SYR IV SCH ×2 (15:21→23:30)
[2019-01-09] MEDS: OXYCODONE HCL IR 5 MG TAB (IMMEDIATE RELEASE) PO PRN ×2 (15:27→16:25)
[2019-01-09] MEDS: ONDANSETRON INJ 2 MG/ML 2 ML VIAL IV PRN ×2 (16:25→23:54)
[2019-01-09] MEDS ORDERED: PROMETHAZINE HCL 25 MG TAB PO PRN ×2 (18:54→19:29)
[2019-01-09] MEDS: DOCUSATE SODIUM 100 MG CAP PO SCH (20:44)
[2019-01-09] MEDS: ACETAMINOPHEN 1,000 MG/100 ML VIAL IV PRN (21:27)
[2019-01-10] MEDS: SODIUM CHLORIDE 0.9% 1000ML 1,000 ML IV SCH (02:03)
[2019-01-10] MEDS: OXYCODONE HCL IR 5 MG TAB (IMMEDIATE RELEASE) PO PRN (05:46)
[2019-01-10] MEDS: ONDANSETRON INJ 2 MG/ML 2 ML VIAL IV PRN (06:56)
[2019-01-10] MEDS: ACETAMINOPHEN 1,000 MG/100 ML VIAL IV PRN (06:59)
[2019-01-10] MEDS: CEFAZOLIN 2000MG 2,000 MG/15 ML SYR IV SCH (07:33)
[2019-01-10] MEDS: DOCUSATE SODIUM 100 MG CAP PO SCH (07:33)
--- NOTE | 2019-01-10 07:52 | Anesthesiology Progress Note ---
Date of Service January 10, 2019 Anesthesia Post Procedure Vital Signs Vital Signs: Temp Pulse Pulse Resp BP Pulse Ox 01/10/19 07:27 36.7 C 86 15 120/78 94 01/10/19 05:25 36.8 C 101 H 16 127/81 95 01/10/19 03:25 36.8 C 83 16 122/79 97 01/10/19 03:24 77 16 95 01/10/19 01:25 36.7 C 83 16 112/74 92 01/10/19 00:03 75 16 95 01/09/19 23:25 36.8 C 93 H 16 126/82 98 01/09/19 21:25 36.8 C 102 H 15 135/81 94 01/09/19 20:24 106 H 18 94 01/09/19 19:25 36.7 C 96 H 16 133/81 93 01/09/19 17:25 36.5 C 92 H 15 121/73 93 01/09/19 15:25 96 H 16 149/88 H 95 01/09/19 15:11 95 H 16 97 01/09/19 14:31 36.6 C 93 H 16 122/78 98 01/09/19 14:21 97 H 18 98 01/09/19 13:25 36.5 C 92 H 16 119/77 97 01/09/19 12:58 70 15 130/78 97 01/09/19 12:36 36.7 C 71 15 132/81 98 01/09/19 12:15 66 19 132/82 98 01/09/19 12:00 71 13 125/91 98 01/09/19 11:50 36.5 C 73 15 154/79 H 98 01/09/19 11:40 69 15 145/94 H 98 01/09/19 11:30 79 18 143/88 H 99 01/09/19 11:20 64 13 152/97 H 99 01/09/19 11:10 36.3 C L 69 18 151/88 H 98 01/09/19 11:00 93 H 20 157/86 H 94 01/09/19 10:50 78 12 158/92 H 100 01/09/19 10:40 87 19 165/85 H 100 01/09/19 10:30 36.4 C L 97 H 17 178/95 H 93 Pain Intensity Right Upper Arm: Pain Intensity: 8 Neck: Pain Intensity: 8 Left Hip: Pain Intensity: 7 Notes Mental Status: alert / awake / arousable and participated in evaluation Patient Amnestic to Procedure: Yes Nausea / Vomiting: adequately controlled Pain: adequately controlled Airway Patency, RR, SpO2: stable & adequate BP & HR: stable & adequate Hydration State: stable & adequate Anesthetic Complications: no major complications apparent and Pt Satisfied with anesthetic care
--- NOTE | 2019-01-10 07:53 | Discharge Summary ---
She was admitted after surgery yesterday morning 09 of January, discharged home this morning. She is improved, stable. She had only one issue and that was difficulty with nausea with Ancef. She is alert, oriented, moves all extremities. Neurologically intact. Pain controlled. PLAN: We will discharge home today, improved stable condition. She has a prescription on her chart. She has a collar for support. Instructions given, precautions as well. A followup appointment should be in about 10 days.
--- NOTE | 2019-01-10 07:58 | Operative Report ---
DATE OF OPERATION: 01/09/2019 PREOPERATIVE DIAGNOSIS: Spinal cord compression C5-C6, C6-C7 cervical spine. POSTOPERATIVE DIAGNOSIS: Spinal cord compression C5-C6, C6-C7 cervical spine. PROCEDURE: Include an anterior cervical discectomy and fusion C5-C6 and C6-C7 cervical spine with left iliac crest bone grafting. We used an anterior plate with a structural autograft. DESCRIPTION OF PROCEDURE: The patient was taken to the Operating Room, prior to taking back to the Operating Room we formally marked her and a bridge note was provided. We took her back to the Operating Room and general intubated anesthetic, prepped and draped sterile. Formal timeout taken. We made a transverse skin incision right over the C6 vertebrae dissecting soft tissue. We readily came down on the C6-C7 and C5-C6 interspaces. We did formal discectomies. I first incised the disc. I used Kerrison's. I used pituitary. I used different types of curettes. We got back in through the posterior longitudinal ligament at both levels, I was out to the neural foramen at both levels on both sides. I was pleased with the decompression. It was very tedious with significant amount of osteophyte formation, it was more than just routine. We then went to the left iliac crest, made a skin incision, fascial incision. There were harvest structural autograft. The bone graft harvest were approximately 7 mm in height, tapered to 6 and these were placed into discectomy sites at C5-C6 and C6-C7 cervical spine. We selected an anterior plate 32 mm in length. This was placed over the construct facet with cortical cancellous screws x6. The cross table lateral imaging was perfect. We began our closure. The cervical spine closed over a drain. The iliac crest closed in layers. Sterile dressing applied throughout. There were no apparent complications not with anesthesia or surgical. The patient was delivered safely to PACU and she was escorted there by our team. I attest to the content of the Intraoperative Record and any orders documented therein. Any exception s are noted below.
--- NOTE | 2019-01-15 08:30 | Operative Report ---
DATE OF OPERATION: 01/10/2019 PREOPERATIVE DIAGNOSIS: Spinal cord compression C5-C6 and C6-C7, cervical spine. POSTOPERATIVE DIAGNOSIS: Spinal cord compression C5-C6 and C6-C7, cervical spine. PROCEDURE: Anterior cervical discectomy and fusion, cervical spine C5-C6 and C6-C7. DESCRIPTION OF PROCEDURE: The patient was taken to the operating room. Prior to this, she was formally marked in the preop holding area. She was taken to surgery, prepped and draped sterile. Formal timeout obtained. I made a transverse skin incision over the C6 vertebral body dissecting the soft tissue. Classic [place] Harrington approach to the cervical spine. I dissected the intervertebral disc at C5-C6. I was lateral to the uncovertebral joint. I was back and through the posterior longitudinal ligament. All disc was evacuated. I was pleased with the decompression. There were no injuries. We then went to the iliac crest, made a skin incision, fascial incision, harvested iliac crest bone graft, tricortical. These were placed into the discectomy sites at C5-C6. The fit was anatomic. I put an anterior plate from the [employer] over the construct approximately 32 mm in length, 16 mm screws. All transfixed in perfect position. We irrigated and closed the cervical spine over a drain in layer-like fashion. The iliac crest closed in layer-like fashion as well. Sterile dressings applied. A collar applied. The patient returned to PACU in improved, stable condition. Bone graft used was autograft. IMPLANTS USED: From [employer]. No complications. Sponge and needle count correct at the close. I attest to the content of the Intraoperative Record and any orders documented therein. Any exception s are noted below.
== END 2019-01-10 09:34 | disposition home or self-care (01) ==
LOC: 3E 06:33 → ASU 06:33